=== PATIENT | male | born 1940 | race Caucasian/White ===

== ENCOUNTER → 2016-07-01 | Outpatient (REF) | payer OTHER ==
[2016-07-01 19:11] LABS: MEAN CORPUSCULAR HEMOGLOBIN 32.1 pg (27.0-33.0); MEAN CORPUSCULAR HGB CONC 32.7 g/dl (32.0-36.5); MEAN CORPUSCULAR VOLUME 98.3 fl (80.0-96.0); RED CELL DISTRIBUTION WIDTH 14.9 % (11.5-14.5); WHITE BLOOD COUNT 6.2 K/mm3 (4.0-10.0)
[2016-07-01 19:47] LABS: ALBUMIN 3.4 GM/DL (3.2-5.2); ALBUMIN/GLOBULIN RATIO 1.17 (1.00-1.93); BILIRUBIN,TOTAL 0.3 MG/DL (0.2-1.0); CALCIUM LEVEL 8.9 MG/DL (8.8-10.2); CREATININE FOR GFR 1.37 MG/DL (0.70-1.30); GLOMERULAR FILTRATION RATE 54.1 (>42); POTASSIUM SERUM 4.8 MEQ/L (3.5-5.1); TOTAL PROTEIN 6.3 GM/DL (6.4-8.2); URIC ACID 10.1 MG/DL (3.5-7.2)
== END ==
LOC: M SFHCADAM 13:19
PROVIDERS: ATTEND Physician Assistant
DX: N18.3 Chronic kidney disease, stage 3 (moderate) (principal); E11.22 Type 2 diabetes mellitus with diabetic chronic kidney disease; E79.0 Hyperuricemia without signs of inflammatory arthritis and tophaceous disease

== ENCOUNTER → 2016-07-19 | Outpatient (REF) | payer OTHER | LOC: M SFHCADAM 10:45 | PROVIDERS: ATTEND Physician Assistant | DX: R76.8 Other specified abnormal immunological findings in serum (principal); Z79.01 Long term (current) use of anticoagulants ==

== ENCOUNTER → 2016-08-02 | Outpatient (CLI) | payer OTHER ==
--- NOTE | 2016-08-02 15:10 | REP ---
Clinical: Cough. Technique: PA and lateral views. Comparison: 05/11/2014. Findings: Mediastinum and cardiac silhouette are stable. Lung fuller demonstrate chronic-appearing interstitial changes primarily involving the bilateral lung bases. No obvious acute focal consolidation, effusion, or pneumothorax. Skeletal structures demonstrate age-related degenerative changes. Small hiatal hernia cannot be excluded. Impression: Chronic stable changes. No obvious acute cardiopulmonary process. Small hiatal hernia suggested. Signed by Jimbo Paz MD 08/02/2016 03:01 P
== END ==
LOC: M ADAMS 14:35
PROVIDERS: ATTEND Family Medicine
DX: R05 Cough (principal)
CPT/HCPCS: 71020; G0463

== ENCOUNTER → 2016-09-29 | Outpatient (CLI) | payer OTHER ==
--- NOTE | 2016-09-29 16:38 | REP ---
LUMBAR SPINE, FIVE VIEWS: HISTORY: Right sciatica. The patient is status-post L2-3 to L5-S1 laminectomy. There is no acute fracture. There are old compression fractures of the L2, L4, and L5 vertebral bodies with minimal to mild height loss. There is no subluxation. The lumbar intervertebral discs are decreased in height. Vacuum phenomenon is present at the L1-2 and L5-S1 levels. These findings are consistent with disc degeneration. There is narrowing of the L1-2 through L5-S1 facet joints. There is scoliosis convex to the right. IMPRESSION: Degenerative change as described above. Signed by Jose Melo MD 09/29/2016 04:41 P
[2016-09-29 20:31] LABS: CALCIUM LEVEL 9.2 MG/DL (8.8-10.2); CREATININE FOR GFR 1.29 MG/DL (0.70-1.30)
[2016-09-29 20:34] LABS: POTASSIUM SERUM 5.2 MEQ/L (3.5-5.1)
== END ==
LOC: M ADAMS 14:16
PROVIDERS: ATTEND Family Medicine
DX: M54.31 Sciatica, right side (principal); M51.36 Other intervertebral disc degeneration, lumbar region; M51.37 Other intervertebral disc degeneration, lumbosacral region; I50.40 Unspecified combined systolic (congestive) and diastolic (congestive) heart failure

== ENCOUNTER → 2017-01-27 | Outpatient (REF) | payer OTHER ==
[2017-01-27 13:06] LABS: CALCIUM LEVEL 9.4 MG/DL (8.8-10.2); CREATININE FOR GFR 1.59 MG/DL (0.70-1.30); GLOMERULAR FILTRATION RATE 45.4 (>42); MAGNESIUM LEVEL 2.4 MG/DL (1.8-2.4)
[2017-01-27 13:07] LABS: POTASSIUM SERUM 5.2 MEQ/L (3.5-5.1)
== END ==
LOC: M LAB REF 12:13
PROVIDERS: ATTEND Internal Medicine Cardiovascular Disease
DX: I50.40 Unspecified combined systolic (congestive) and diastolic (congestive) heart failure (principal)

== ENCOUNTER → 2017-01-27 | Outpatient (REF) | payer OTHER ==
[2017-01-27 12:47] LABS: INR 2.22
== END ==
LOC: M SFHCADAM 10:37
PROVIDERS: ATTEND Physician Assistant
DX: I48.2 Chronic atrial fibrillation (principal); Z51.81 Encounter for therapeutic drug level monitoring; Z79.01 Long term (current) use of anticoagulants

== ENCOUNTER → 2017-04-25 | Outpatient (REF) | payer OTHER ==
[2017-04-25 19:56] LABS: ALBUMIN 3.7 GM/DL (3.2-5.2); ALBUMIN/GLOBULIN RATIO 1.32 (1.00-1.93); BILIRUBIN,TOTAL 0.4 MG/DL (0.2-1.0); CREATININE FOR GFR 1.9 MG/DL (0.70-1.30); TOTAL PROTEIN 6.5 GM/DL (6.4-8.2); URIC ACID 4.3 MG/DL (3.5-7.2)
[2017-04-25 19:59] LABS: MEAN CORPUSCULAR HEMOGLOBIN 32.7 pg (27.0-33.0); MEAN CORPUSCULAR VOLUME 102.2 fl (80.0-96.0); PLATELET COUNT, AUTOMATED 190 10^3/uL (150-450); RED CELL DISTRIBUTION WIDTH 16.5 % (11.5-14.5); WHITE BLOOD COUNT 7.7 10^3/uL (4.0-10.0)
[2017-04-25 20:00] LABS: POTASSIUM SERUM 5.5 MEQ/L (3.5-5.1)
[2017-04-25 20:15] LABS: INR 1.68
== END ==
LOC: M SFHCADAM 15:07
PROVIDERS: ATTEND Physician Assistant
DX: E11.9 Type 2 diabetes mellitus without complications (principal); N18.3 Chronic kidney disease, stage 3 (moderate); Z79.01 Long term (current) use of anticoagulants; Z87.39 Personal history of other diseases of the musculoskeletal system and connective tissue

== ENCOUNTER → 2017-05-17 | Outpatient (CLI) | payer OTHER ==
--- NOTE | 2017-05-18 08:29 | REP ---
RIGHT HIP: CLINICAL: Pain. TECHNIQUE: Neutral and frog lateral views. FINDINGS: Moderate to early advanced degenerative changes are appreciated. Findings include increased sclerosis to the acetabular roof with marginal spurring as well as heterogeneity and small cystic changes to the subchondral femoral head. There is near complete joint space obliteration. No acute fracture or dislocation. Surrounding soft tissues are unremarkable. IMPRESSION: Moderate to early advanced degenerative changes of the right hip. No fracture or dislocation. Signed by Jimbo Paz MD 05/19/2017 08:02 A
--- NOTE | 2017-05-18 08:32 | REP ---
PELVIC RADIOGRAPH: CLINICAL: Pelvic pain. TECHNIQUE: Single AP view of the pelvis. FINDINGS: Moderate to early advanced relatively symmetric degenerative changes to the bilateral hips noted. Findings include increased sclerosis to the acetabular roof with marginal spurring as well as subchondral heterogeneity and subtle cystic changes to the femoral heads. Near complete joint space obliteration is noted bilaterally as well (right greater than left). No acute fracture or dislocation. Visualized lumbosacral spine demonstrates scoliotic curvature, advanced multilevel degenerative changes including osteophytosis, end plate sclerosis and disc space narrowing, as well as chronic appearing asymmetric compression deformities along the right side of L5. IMPRESSION: Moderate to early advanced degenerative changes. Signed by Jimbo Paz MD 05/19/2017 08:02 A
--- NOTE | 2017-05-18 08:43 | REP ---
LUMBOSACRAL SPINE SERIES: CLINICAL: Lower back pain. TECHNIQUE: AP, lateral, bilateral oblique and coned down views of the lumbosacral spine. COMPARISON: 09/29/2016. FINDINGS: Chronic stable dextroconvex scoliosis along with advanced multilevel degenerative changes including asymmetric compression deformities at L2, L4, and L5 remain unchanged. Advanced multilevel degenerative changes also include osteophytosis, endplate sclerosis, and disc space narrowing/obliteration. Findings are essentially stable when compared to prior examination. IMPRESSION: Dextroconvex scoliosis and advanced multilevel degenerative changes including multiple chronic compression deformities. Findings stable compared to prior exam. Signed by Jimbo Paz MD 05/19/2017 08:04 A
== END ==
LOC: M ADAMS 17:21
PROVIDERS: ATTEND Physician Assistant
DX: M54.41 Lumbago with sciatica, right side (principal); M16.11 Unilateral primary osteoarthritis, right hip; M51.36 Other intervertebral disc degeneration, lumbar region; M41.86 Other forms of scoliosis, lumbar region; N18.3 Chronic kidney disease, stage 3 (moderate); D63.1 Anemia in chronic kidney disease; Z79.01 Long term (current) use of anticoagulants; Z79.4 Long term (current) use of insulin; Z79.899 Other long term (current) drug therapy; I48.2 Chronic atrial fibrillation; R76.8 Other specified abnormal immunological findings in serum; E87.5 Hyperkalemia
CPT/HCPCS: 72110; 72170; 73502; 82607; 82728; 82746; 83550; 83883; 85610; G0328; G0463

== ENCOUNTER → 2017-05-17 | Outpatient (REF) | payer OTHER ==
[2017-05-17 19:50] LABS: PERCENT SATURATION 28.9 % (19.7-50.0)
[2017-05-17 19:54] LABS: FOLATE 16.8 NG/ML
[2017-05-21 00:06] LABS: FREE KAPPA LIGHT CHAINS SERUM 33.5 mg/L (3.3-19.4); FREE LAMBDA LIGHT CHAINS SERUM 31.1 mg/L (5.7-26.3); KAPPA/LAMBDA RATIO SERUM 1.08 (0.26-1.65)
== END ==
LOC: M SFHCADAM 17:09
PROVIDERS: ATTEND Physician Assistant
DX: Z51.81 Encounter for therapeutic drug level monitoring (principal); Z79.01 Long term (current) use of anticoagulants; D63.1 Anemia in chronic kidney disease

== ENCOUNTER → 2017-05-23 | Outpatient (REF) | payer OTHER | LOC: M SFHCADAM 09:43 | PROVIDERS: ATTEND Physician Assistant | DX: N18.3 Chronic kidney disease, stage 3 (moderate) (principal); D63.1 Anemia in chronic kidney disease; E87.5 Hyperkalemia; R76.8 Other specified abnormal immunological findings in serum ==

== ENCOUNTER → 2017-07-24 | Outpatient (REF) | payer OTHER ==
[2017-07-25 14:18] LABS: FERRITIN 65 NG/ML (26-388); IRON (FE) 81 UG/DL (65-175); PERCENT SATURATION 23.5 % (19.7-50.0); TOTAL IRON BINDING CAPACITY 345 UG/DL (250-450)
== END ==
LOC: M LAB REF 13:47
DX: D50.9 Iron deficiency anemia, unspecified (principal)
CPT/HCPCS: 83550

== ENCOUNTER → 2017-08-03 | Outpatient (REF) | payer OTHER ==
[2017-08-03 21:22] LABS: BASO % 0.2 % (0.0-1.0); EOS % 0.4 % (0.0-3.0); HEMATOCRIT 33.9 % (42.0-52.0); HEMOGLOBIN 11.1 g/dl (14.0-18.0); IMMATURE GRANULOCYTE % 2.1 % (0-3.0); LYMPH # 1.1 10^3/uL (1.5-4.5); MEAN CORPUSCULAR HEMOGLOBIN 32.7 pg (27.0-33.0); MEAN CORPUSCULAR HGB CONC 32.7 g/dl (32.0-36.5); MONO # 0.7 10^3/uL (0.0-0.8); MONO % 12.3 % (0.0-5.0); NEUTROPHILS # 3.7 10^3/uL (1.8-7.7); PLATELET COUNT, AUTOMATED 146 10^3/uL (150-450); RED BLOOD COUNT 3.39 10^6/uL (4.30-6.10); RED CELL DISTRIBUTION WIDTH 15.4 % (11.5-14.5); WHITE BLOOD COUNT 5.6 10^3/uL (4.0-10.0)
[2017-08-03 21:38] LABS: ALBUMIN 3.6 GM/DL (3.2-5.2)
[2017-08-03 21:38] LABS: FERRITIN 99 NG/ML (26-388); IRON (FE) 74 UG/DL (65-175); PERCENT SATURATION 22.2 % (19.7-50.0); TOTAL IRON BINDING CAPACITY 334 UG/DL (250-450)
[2017-08-03 21:54] LABS: INR 2.45; PROTHROMBIN TIME 27.6 SECONDS (12.4-14.5)
== END ==
LOC: M LABDRWAD 21:08
DX: Z01.818 Encounter for other preprocedural examination (principal); D63.8 Anemia in other chronic diseases classified elsewhere; M25.559 Pain in unspecified hip; M16.11 Unilateral primary osteoarthritis, right hip; Z79.01 Long term (current) use of anticoagulants
CPT/HCPCS: 82040

== ENCOUNTER → 2017-09-01 | Outpatient (CLI) | payer OTHER | LOC: M RAD 11:39 | DX: M79.89 Other specified soft tissue disorders (principal) | CPT/HCPCS: 93971 ==

== ENCOUNTER → 2017-09-14 | Outpatient (REF) | payer OTHER ==
[2017-09-14 13:47] LABS: CREATININE FOR GFR 1.28 MG/DL (0.70-1.30); GLOMERULAR FILTRATION RATE 58.3 (>42)
== END ==
LOC: M LABDRWAD 12:51
DX: B18.2 Chronic viral hepatitis C (principal)
CPT/HCPCS: 82565

== ENCOUNTER → 2018-01-05 | Outpatient (REF) | payer OTHER ==
[2018-01-05 13:31] LABS: ALBUMIN 3.5 GM/DL (3.2-5.2); ALBUMIN/GLOBULIN RATIO 1.09 (1.00-1.93); ALKALINE PHOSPHATASE 105 U/L (45-117); ALT/SGPT 21 U/L (12-78); ANION GAP 7 MEQ/L (8-16); AST/SGOT 17 U/L (7-37); BILIRUBIN,TOTAL 0.5 MG/DL (0.2-1.0); BLOOD UREA NITROGEN 24 MG/DL (7-18); CALCIUM LEVEL 8.9 MG/DL (8.8-10.2); CARBON DIOXIDE LEVEL 32 MEQ/L (21-32); CHLORIDE LEVEL 101 MEQ/L (98-107); CHOLESTEROL LEVEL 158 MG/DL (<200); CHOLESTEROL RISK RATIO 4.157 (<5); CREATININE FOR GFR 1.32 MG/DL (0.70-1.30); GLOMERULAR FILTRATION RATE 56.1 (>42); GLUCOSE, FASTING 173 MG/DL (70-100); HDL CHOLESTEROL 38 MG/DL (>40); NON-HDL-C 120 MG/DL; SODIUM LEVEL 140 MEQ/L (136-145); TOTAL PROTEIN 6.7 GM/DL (6.4-8.2); TRIGLYCERIDES LEVEL 205 MG/DL (<150); URIC ACID 8.8 MG/DL (3.5-7.2)
== END ==
LOC: M SFHCADAM 10:54
DX: N18.3 Chronic kidney disease, stage 3 (moderate) (principal); R76.8 Other specified abnormal immunological findings in serum; E11.9 Type 2 diabetes mellitus without complications; E79.0 Hyperuricemia without signs of inflammatory arthritis and tophaceous disease
CPT/HCPCS: 84550

== ENCOUNTER → 2018-01-29 | Outpatient (REF) | payer OTHER ==
[2018-01-29 13:08] LABS: HEMATOCRIT 33.2 % (42.0-52.0); HEMOGLOBIN 10.8 g/dl (13.5-17.5); MEAN CORPUSCULAR HGB CONC 32.5 g/dl (32.0-36.5); MEAN CORPUSCULAR VOLUME 95.4 fl (80.0-96.0); PLATELET COUNT, AUTOMATED 138 10^3/uL (150-450); RED BLOOD COUNT 3.48 10^6/uL (4.30-6.10); WHITE BLOOD COUNT 5.7 10^3/uL (4.0-10.0)
[2018-01-29 13:12] LABS: ALBUMIN 3.3 GM/DL (3.2-5.2); ALBUMIN/GLOBULIN RATIO 1.06 (1.00-1.93); ALKALINE PHOSPHATASE 91 U/L (45-117); ALT/SGPT 23 U/L (12-78); ANION GAP 7 MEQ/L (8-16); AST/SGOT 20 U/L (7-37); BILIRUBIN,TOTAL 0.4 MG/DL (0.2-1.0); BLOOD UREA NITROGEN 32 MG/DL (7-18); CALCIUM LEVEL 8.5 MG/DL (8.8-10.2); CARBON DIOXIDE LEVEL 29 MEQ/L (21-32); CHLORIDE LEVEL 101 MEQ/L (98-107); CREATININE FOR GFR 1.39 MG/DL (0.70-1.30); FERRITIN 401 NG/ML (26-388); GLOMERULAR FILTRATION RATE 52.9 (>42); GLUCOSE, FASTING 252 MG/DL (70-100); IRON (FE) 107 UG/DL (65-175); PERCENT SATURATION 35.2 % (19.7-50.0); POTASSIUM SERUM 5.1 MEQ/L (3.5-5.1); SODIUM LEVEL 137 MEQ/L (136-145); TOTAL IRON BINDING CAPACITY 304 UG/DL (250-450); TOTAL PROTEIN 6.4 GM/DL (6.4-8.2); URIC ACID 5.5 MG/DL (3.5-7.2)
== END ==
LOC: M SFHCADAM 09:55
DX: N18.3 Chronic kidney disease, stage 3 (moderate) (principal); D64.9 Anemia, unspecified; E79.0 Hyperuricemia without signs of inflammatory arthritis and tophaceous disease
CPT/HCPCS: 83550

== ENCOUNTER → 2018-02-23 | Outpatient (REF) | payer OTHER ==
[2018-02-23 13:14] LABS: IRON (FE) 96 UG/DL (65-175)
== END ==
LOC: M SFHCADAM 12:14
DX: N18.3 Chronic kidney disease, stage 3 (moderate) (principal); D64.9 Anemia, unspecified
CPT/HCPCS: 83540

== ENCOUNTER 2018-02-27 10:45 | Outpatient (REF) | payer OTHER ==
[2018-02-28 15:52] LABS: ESTIMATED AVERAGE GLUCOSE 186 MG/DL (60-110); HEMOGLOBIN A1c 8.1 %
== END 2018-02-28 ==
LOC: M SFHCADAM 10:45
DX: E11.9 Type 2 diabetes mellitus without complications (principal); Z79.01 Long term (current) use of anticoagulants; Z53.8 Procedure and treatment not carried out for other reasons; I48.2 Chronic atrial fibrillation; I25.10 Atherosclerotic heart disease of native coronary artery without angina pectoris; N18.3 Chronic kidney disease, stage 3 (moderate)
CPT/HCPCS: 83036

== ENCOUNTER → 2018-04-20 | Outpatient (REF) | payer OTHER ==
[2018-04-20 17:39] LABS: FERRITIN 407 NG/ML (26-388); IRON (FE) 112 UG/DL (65-175); PERCENT SATURATION 37.8 % (19.7-50.0); TOTAL IRON BINDING CAPACITY 296 UG/DL (250-450)
== END ==
LOC: M LAB REF 17:01
DX: D50.9 Iron deficiency anemia, unspecified (principal)
CPT/HCPCS: 83550

== ENCOUNTER → 2018-06-26 | Outpatient (REF) | payer OTHER ==
[2018-06-26 12:59] LABS: INR 1.93; PROTHROMBIN TIME 22.4 SECONDS (12.1-14.4)
== END ==
LOC: M SFHCADAM 10:39
PROVIDERS: ATTEND Physician Assistant
DX: Z79.01 Long term (current) use of anticoagulants (principal)

== ENCOUNTER → 2018-08-17 | Outpatient (REF) | payer OTHER ==
[2018-08-17 12:40] LABS: HEMATOCRIT 33.1 % (42.0-52.0); HEMOGLOBIN 10.7 g/dl (13.5-17.5); MEAN CORPUSCULAR HEMOGLOBIN 32.5 pg (27.0-33.0); MEAN CORPUSCULAR HGB CONC 32.3 g/dl (32.0-36.5); MEAN CORPUSCULAR VOLUME 100.6 fl (80.0-96.0); PLATELET COUNT, AUTOMATED 142 10^3/uL (150-450); RED BLOOD COUNT 3.29 10^6/uL (4.30-6.10); WHITE BLOOD COUNT 6.2 10^3/uL (4.0-10.0)
[2018-08-17 12:57] LABS: CREATININE, URINE 24.4 MG/DL; MALB URINE SIEMENS 6.1 MG/L
[2018-08-17 13:09] LABS: HEMOGLOBIN A1c 9.5 %
[2018-08-17 13:48] LABS: ALBUMIN 3.4 GM/DL (3.2-5.2); BILIRUBIN,TOTAL 0.4 MG/DL (0.2-1.0); CALCIUM LEVEL 8.1 MG/DL (8.8-10.2); CREATININE FOR GFR 1.5 MG/DL (0.70-1.30); FREE T4 0.9 NG/DL (0.76-1.46); GLOMERULAR FILTRATION RATE 48.4 (>42); THYROID STIMULATING HORMONE 1.02 uIU/ML (0.358-3.740); TOTAL PROTEIN 6.6 GM/DL (6.4-8.2)
== END ==
LOC: M SFHCADAM 11:00
PROVIDERS: ATTEND Physician Assistant
DX: I50.22 Chronic systolic (congestive) heart failure (principal); E11.22 Type 2 diabetes mellitus with diabetic chronic kidney disease; I48.2 Chronic atrial fibrillation; N18.9 Chronic kidney disease, unspecified

== ENCOUNTER → 2018-11-12 | Outpatient (REF) | payer MEDICARE ==
[2018-11-12 13:38] LABS: INR 1.86; PROTHROMBIN TIME 21.8 SECONDS (12.1-14.4)
[2018-11-12 14:20] LABS: HEMOGLOBIN A1c 7.7 %
== END ==
LOC: M SFHCADAM 10:32
PROVIDERS: ATTEND Physician Assistant
DX: Z51.81 Encounter for therapeutic drug level monitoring (principal); Z79.01 Long term (current) use of anticoagulants; E11.9 Type 2 diabetes mellitus without complications

== ENCOUNTER → 2018-11-15 | Outpatient (CLI) | payer MEDICARE ==
[~2018-11-15] MED LIST: CONRAY-43 43% 50ML VIAL (Q9960) As Ordered ONE; LIDOCAINE 1% MDV 20ML VIAL As Ordered ONE; methylPREDNISolone 80MG/ML SUSP 1ML VIAL (J1040) IM ONE; methylPREDNISolone SUSP 40 MG/ML (DEPO-medrol) VIAL (J1030) As Ordered ONE
--- NOTE | 2018-11-16 09:04 | REP ---
Reason For Exam/Comment: Left hip pain, rule Procedure: left hip arthrocentesis The procedure was performed by LISHA Pimentel, under the direct supervision of Dr. Lee. The benefits and risks including but not limited to pain, infection, bleeding and anaphylaxis were explained to the patient and informed consent was obtained both verbally and written. Directly prior to the start of the procedure, a formal timeout was completed in the procedure room. The left femoral neck joint was localized using fluoroscopic guidance. The skin was prepped and draped in the usual sterile fashion. 5 mL of 1% lidocaine was used as a local anesthetic. Using fluoroscopic guidance a 22-gauge spinal needle was inserted and advanced to the left femoral neck joint space. 1 mL of Conray 43 was injected to verify needle placement. A 6 mL solution containing a 5 mL 1% lidocaine 10 mg/ml and 1 ml of Depo-Medrol 80 mg/ml was injected into the joint. The needle was removed and hemostasis was achieved. The patient tolerated the procedure well and there were no immediate complications. 0.6 minutes of fluoroscopy time was utilized for this procedure. Reviewed by LISHA Mendoza 11/15/2018 11:56 A Electronically Signed by Viet Lee MD 11/16/2018 08:55 A
== END ==
LOC: M RADPRO 10:38
PROVIDERS: ATTEND Orthopaedic Surgery
DX: M25.552 Pain in left hip (principal); M16.12 Unilateral primary osteoarthritis, left hip
CPT/HCPCS: 20610; 77002; J1030; Q9960

== ENCOUNTER 2018-11-17 19:07 | Emergency (ER) | payer MEDICARE ==
[~2018-11-17] VITALS: Ht 177.8 cm; Wt 105.9 kg
--- NOTE | 2018-11-17 20:14 | REPVR ---
EXAM: CT Cervical Spine Without Contrast EXAM DATE/TIME: 11/17/2018 7:13 PM CLINICAL HISTORY: 77 years old, male; Injury or trauma; Fall; Initial encounter; Blunt trauma; Additional info: Fall on coumadin TECHNIQUE: Imaging protocol: Axial computed tomography images of the cervical spine without contrast. Coronal and sagittal reformatted images were created and reviewed. Radiation optimization: All CT scans at this facility use at least one of these dose optimization techniques: automated exposure control; mA and/or kV adjustment per patient size (includes targeted exams where dose is matched to clinical indication); or iterative reconstruction. COMPARISON: DX SPINE LS COMPLETE 05/17/2017 5:23 PM FINDINGS: Vertebrae: No acute fracture. Normal alignment. C2-C3: Bilateral degenerative changes of apophyseal joints, greatest on the left no spinal stenosis. There is mild left neural foraminal stenosis. No C3-C4: Mild anterior listhesis with degenerative changes, primarily in the left apophyseal joint with no spinal stenosis. There is moderate left neural foraminal stenosis. C4-C5: Slight interspace narrowing with mild anterior listhesis and degenerative changes of apophyseal joints bilaterally. There is moderate right and moderately severe left neural foraminal stenosis. C5-C6: Prominent interspace narrowing with near ankylosis and minimal posterior osteophytes. There are bilateral degenerative changes with moderate right and borderline left neural foraminal stenosis. C6-C7: Minimal posterior osteophytes and mild bilateral degenerative changes and no significant spinal or foraminal stenosis. C7-T1: Mild interspace narrowing with degenerative changes of apophyseal joints and mild right neural foraminal stenosis. Soft tissues: Unremarkable. Thyroid: Inhomogeneous thyroid with some prominence of the lower pole of the left suggesting a nodule which may measure 3.3 x 1.6 x 2.2 cm. Lungs: Lung apices are normal. IMPRESSION: 1. Multilevel degenerative changes with no significant spinal stenosis and varying degrees of multilevel neural foraminal stenosis. 2. No acute fracture or subluxation. 3. Question of nodule in the lower pole of the left thyroid 3.3 x 1.6 x 2.2 cm. Ultrasound may be of benefit for further evaluation. COMMENT: Consistent with the [employer]'s Incidental Findings Committee Report (J Am Fina Radiol 2015): Thyroid nodules greater than or equal to 1 cm in patients under 35 years old, or greater than or equal to 1.5 cm in patients over 35 years old, should undergo ultrasound. Patients with limited life expectancy and/or comorbidities do not require follow up imaging or biopsy for nodules of any size. Electronically signed by: Vinod Contreras On 11/17/2018 20:14:14 PM
--- NOTE | 2018-11-17 20:17 | REPVR ---
EXAM: CT Head Without Contrast EXAM DATE/TIME: 11/17/2018 7:13 PM CLINICAL HISTORY: 77 years old, male; Injury or trauma; Fall; Initial encounter; Blunt trauma (contusions or hematomas); Additional info: Fall on coumadin TECHNIQUE: Imaging protocol: Axial computed tomography images of the head without contrast. Radiation optimization: All CT scans at this facility use at least one of these dose optimization techniques: automated exposure control; mA and/or kV adjustment per patient size (includes targeted exams where dose is matched to clinical indication); or iterative reconstruction. COMPARISON: No relevant prior studies available. FINDINGS: Brain: There is slight prominence of the peripheral sulci. There is mild patchy low attenuation of deep white matter. Slight prominence of perivascular spaces at the base of the brain. Ventricles: Normal. No ventriculomegaly. Bones/joints: Unremarkable. No acute fracture. Sinuses: Visualized sinuses are unremarkable. No fluid levels. Mastoid air cells: Visualized mastoid air cells are well aerated. No mastoid effusion. Auditory system: Debris in the external auditory canals. Soft tissues: Right forehead and frontal scalp soft tissue swelling and hematoma extending into the right periorbital region, greatest laterally. IMPRESSION: 1. Large right forehead and frontal scalp soft tissue swelling and hematoma with extension around the right periorbital region. 2. Mild chronic ischemic white matter change and minimal atrophy. 3. Otherwise negative noncontrast head CT. Electronically signed by: Vinod Contreras On 11/17/2018 20:17:17 PM
[2018-11-17 20:22] LABS: BASO % 0.2 % (0.0-1.0); EOS % 0.1 % (0.0-3.0); HEMATOCRIT 32.3 % (42.0-52.0); HEMOGLOBIN 10.5 g/dl (13.5-17.5); LYMPH # 1.5 10^3/uL (1.5-4.5); LYMPH % 11.7 % (24.0-44.0); MEAN CORPUSCULAR HEMOGLOBIN 32.8 pg (27.0-33.0); MEAN CORPUSCULAR HGB CONC 32.5 g/dl (32.0-36.5); MEAN CORPUSCULAR VOLUME 100.9 fl (80.0-96.0); MONO # 1.6 10^3/uL (0.0-0.8); MONO % 12.9 % (0.0-5.0); NEUTROPHILS # 9.1 10^3/uL (1.8-7.7); NEUTROPHILS % 73.1 % (36.0-66.0); PLATELET COUNT, AUTOMATED 157 10^3/uL (150-450); WHITE BLOOD COUNT 12.4 10^3/uL (4.0-10.0)
[2018-11-17 20:31] VITALS: BP 131/81
[2018-11-17 20:44] LABS: INR 2.05; PARTIAL THROMBOPLASTIN TIME 36.6 SECONDS (25.4-37.6); PROTHROMBIN TIME 23.5 SECONDS (12.1-14.4)
[2018-11-17 20:47] LABS: CREATININE FOR GFR 1.56 MG/DL (0.70-1.30); GLOMERULAR FILTRATION RATE 46.3 (>42); POTASSIUM SERUM 4.6 MEQ/L (3.5-5.1)
--- NOTE | 2018-11-20 12:43 | ED PDOC ---
Post-Departure Follow-Up hong adams faxed formal report of ct s spine for fu Maycol Lovelace MD Nov 20, 2018 12:43
== END 2018-11-17 20:42 | disposition home or self-care (01) ==
LOC: M ED 19:07
DX: S00.83XA Contusion of other part of head, initial encounter (principal); W01.10XD Fall on same level from slipping, tripping and stumbling with subsequent striking against unspecified object, subsequent encounter; Y92.098 Other place in other non-institutional residence as the place of occurrence of the external cause; E11.9 Type 2 diabetes mellitus without complications; I10 Essential (primary) hypertension; I48.91 Unspecified atrial fibrillation; M19.90 Unspecified osteoarthritis, unspecified site; M10.9 Gout, unspecified; J44.9 Chronic obstructive pulmonary disease, unspecified; Z79.899 Other long term (current) drug therapy; Z79.01 Long term (current) use of anticoagulants

== ENCOUNTER → 2018-12-20 | Outpatient (CLI) | payer MEDICARE ==
--- NOTE | 2018-12-21 00:44 | REP ---
Clinical: Thyroid nodule. Technique: Real time godwin scale ultrasound examination using linear and curved array transducers. Findings: The thyroid gland is diffusely heterogeneous with innumerable bilateral nodules and both simple and complex cysts. The right thyroid lobe measures 4.9 x 1.9 x 2.1 cm, and the largest complex cyst with mural nodular components measures 1.7 x 1.1 x 1.3 cm. The left thyroid lobe measures 5.2 x 3.0 x 2.4 cm, and the largest complex cyst with mural nodular components measures 2.7 x 2.0 x 1.6 cm and 1.3 x 1.0 x 1.4 cm. Impression: Diffusely heterogeneous multinodular thyroid gland.
== END ==
LOC: M WHC 08:41
PROVIDERS: ATTEND Physician Assistant
DX: E04.1 Nontoxic single thyroid nodule (principal)

== ENCOUNTER → 2019-01-10 | Outpatient (CLI) | payer MEDICARE ==
--- NOTE | 2019-01-10 14:04 | REP ---
Clinical: Chronic medical renal disease stage III. Technique: Real time godwin scale and color evaluation using curved array transducer. Findings: The kidneys demonstrate increased parenchymal echogenicity consistent with chronic medical renal disease and no evidence for hydronephrosis, nephrolithiasis or mass lesion. Bladder is grossly unremarkable but incompletely distended. Right kidney measures 17.7 x 7.6 x 9.4 cm including 8.2 x 6.6 x 8.0 cm upper pole cyst, 6.5 x 4.2 x 3.8 cm mid/upper pole cyst, 5.6 x 6.5 x 4.8 cm mid pole cyst. Left kidney measures 12.1 x 6.5 x 5.2 cm and includes 2.0 x 2.0 x 1.6 cm upper pole cyst. Impression: Chronic medical renal disease and bilateral cysts (right greater than left). Electronically Signed by Jimbo Paz MD 01/10/2019 01:56 P
== END ==
LOC: M RAD 12:59
PROVIDERS: ATTEND Internal Medicine Nephrology
DX: N18.3 Chronic kidney disease, stage 3 (moderate) (principal); N28.1 Cyst of kidney, acquired

== ENCOUNTER → 2019-04-01 | Outpatient (REF) | payer MEDICARE ==
[2019-04-01 16:39] LABS: HEMOGLOBIN 9.6 g/dl (13.5-17.5); MEAN CORPUSCULAR HEMOGLOBIN 32.2 pg (27.0-33.0); MEAN CORPUSCULAR VOLUME 100.7 fl (80.0-96.0); PLATELET COUNT, AUTOMATED 132 10^3/uL (150-450); RED BLOOD COUNT 2.98 10^6/uL (4.30-6.10); WHITE BLOOD COUNT 5.5 10^3/uL (4.0-10.0)
[2019-04-01 16:42] LABS: ALBUMIN 3.3 GM/DL (3.2-5.2); BILIRUBIN,TOTAL 0.4 MG/DL (0.2-1.0); CALCIUM LEVEL 8.6 MG/DL (8.8-10.2); CREATININE FOR GFR 1.38 MG/DL (0.70-1.30); GLOMERULAR FILTRATION RATE 53.2 (>42); POTASSIUM SERUM 4.7 MEQ/L (3.5-5.1); TOTAL PROTEIN 6.2 GM/DL (6.4-8.2)
[2019-04-01 16:51] LABS: INR 2.78; PROTHROMBIN TIME 29.2 SECONDS (11.8-14.0)
[2019-04-01 17:05] LABS: HEMOGLOBIN A1c 7.6 %
== END ==
LOC: M SFHCADAM 11:44
PROVIDERS: ATTEND Physician Assistant
DX: N18.3 Chronic kidney disease, stage 3 (moderate) (principal); Z79.01 Long term (current) use of anticoagulants; E11.22 Type 2 diabetes mellitus with diabetic chronic kidney disease; I50.22 Chronic systolic (congestive) heart failure

== ENCOUNTER → 2019-07-04 | Outpatient (REF) | payer MEDICARE ==
[2019-07-04 13:15] LABS: BASO % 0.2 % (0.0-1.0); EOS % 0.2 % (0.0-3.0); HEMATOCRIT 30.7 % (42.0-52.0); HEMOGLOBIN 9.8 g/dl (13.5-17.5); LYMPH % 16.5 % (24.0-44.0); MEAN CORPUSCULAR HEMOGLOBIN 32.1 pg (27.0-33.0); MEAN CORPUSCULAR HGB CONC 31.9 g/dl (32.0-36.5); MEAN CORPUSCULAR VOLUME 100.7 fl (80.0-96.0); MONO # 0.8 10^3/uL (0.0-0.8); NEUTROPHILS % 67.6 % (36.0-66.0); PLATELET COUNT, AUTOMATED 135 10^3/uL (150-450); RED BLOOD COUNT 3.05 10^6/uL (4.30-6.10); WHITE BLOOD COUNT 5.9 10^3/uL (4.0-10.0)
[2019-07-04 13:34] LABS: HEMOGLOBIN A1c 7.5 %
[2019-07-04 13:44] LABS: ALBUMIN 3.4 GM/DL (3.2-5.2); PERCENT SATURATION 28.9 % (19.7-50.0)
== END ==
LOC: M LABDRWAD 12:38
PROVIDERS: ATTEND Orthopaedic Surgery
DX: Z01.818 Encounter for other preprocedural examination (principal); M16.12 Unilateral primary osteoarthritis, left hip; M25.559 Pain in unspecified hip; Z86.39 Personal history of other endocrine, nutritional and metabolic disease

== ENCOUNTER → 2019-07-04 | Outpatient (REF) | payer MEDICARE ==
[2019-07-04 13:16] LABS: HEMATOCRIT 31.6 % (42.0-52.0); HEMOGLOBIN 9.9 g/dl (13.5-17.5); MEAN CORPUSCULAR HGB CONC 31.3 g/dl (32.0-36.5); MEAN CORPUSCULAR VOLUME 102.3 fl (80.0-96.0); PLATELET COUNT, AUTOMATED 125 10^3/uL (150-450); RED BLOOD COUNT 3.09 10^6/uL (4.30-6.10); WHITE BLOOD COUNT 5.9 10^3/uL (4.0-10.0)
[2019-07-04 13:22] LABS: FERRITIN 468 NG/ML (26-388); IRON (FE) 84 UG/DL (65-175); PERCENT SATURATION 29.4 % (19.7-50.0); TOTAL IRON BINDING CAPACITY 286 UG/DL (250-450); TOTAL PROTEIN 6.3 GM/DL (6.4-8.2)
[2019-07-04 13:25] LABS: INR 2.33; PROTHROMBIN TIME 25.3 SECONDS (11.8-14.0)
[2019-07-04 13:31] LABS: FOLATE 16.6 NG/ML; VITAMIN B12 LEVEL 494 PG/ML
[2019-07-06 09:11] LABS: FREE KAPPA LIGHT CHAINS SERUM 45.7 mg/L (3.3-19.4); FREE KAPPA LIGHT CHAINS URINE 28.43 mg/L (0.63-113.79); FREE LAMBDA LIGHT CHAINS SERUM 36.8 mg/L (5.7-26.3); FREE LAMBDA LIGHT CHAINS URINE 2.05 mg/L (0.47-11.77); KAPPA/LAMBDA RATIO SERUM 1.24 (0.26-1.65); KAPPA/LAMBDA RATIO URINE 13.87 (1.03-31.76)
[2019-07-09 11:39] LABS: ALBUMIN 3.64 GM/DL (3.29-5.55); ALBUMIN % 57.8 % (55.8-66.1); ALPHA-1-GLOBULIN % 5.3 % (2.9-4.9); ALPHA-1-GLOBULINS 0.33 GM/DL (0.17-0.41); ALPHA-2-GLOBULINS 0.67 GM/DL (0.42-0.99); ALPHA-2-GLOBULINS % 10.7 % (7.1-11.8); BETA-1-GLOBULINS 0.38 GM/DL (0.28-0.60); BETA-2-GLOBULINS 0.39 GM/DL (0.19-0.55); BETA-2-GLOBULINS % 6.2 % (3.2-6.5); GAMMA GLOBULINS 0.88 GM/DL (0.65-1.58)
== END ==
LOC: M SFHCADAM 10:07
PROVIDERS: ATTEND Family Medicine
DX: Z01.818 Encounter for other preprocedural examination (principal); D64.9 Anemia, unspecified; N18.3 Chronic kidney disease, stage 3 (moderate); I48.20 Chronic atrial fibrillation, unspecified; M16.12 Unilateral primary osteoarthritis, left hip; M25.559 Pain in unspecified hip; Z86.39 Personal history of other endocrine, nutritional and metabolic disease

== ENCOUNTER → 2019-09-02 | Outpatient (REF) | payer MEDICARE ==
[2019-09-02 16:14] LABS: INR 4.46; PROTHROMBIN TIME 42.7 SECONDS (11.8-14.0)
== END ==
LOC: M SFHCADAM 15:50
PROVIDERS: ATTEND Physician Assistant Medical
DX: I48.20 Chronic atrial fibrillation, unspecified (principal)

== ENCOUNTER → 2019-09-09 | Outpatient (REF) | payer MEDICARE ==
[2019-09-09 13:19] LABS: HEMATOCRIT 29.2 % (42.0-52.0); HEMOGLOBIN 9.2 g/dl (13.5-17.5); MEAN CORPUSCULAR HGB CONC 31.5 g/dl (32.0-36.5); MEAN CORPUSCULAR VOLUME 98.3 fl (80.0-96.0); PLATELET COUNT, AUTOMATED 109 10^3/uL (150-450); RED BLOOD COUNT 2.97 10^6/uL (4.30-6.10); WHITE BLOOD COUNT 25.3 10^3/uL (4.0-10.0)
[2019-09-09 13:29] LABS: INR 2.96; PROTHROMBIN TIME 30.7 SECONDS (11.8-14.0)
[2019-09-09 13:40] LABS: HEMOGLOBIN A1c 6.7 %
[2019-09-09 13:46] LABS: ALBUMIN 2.8 GM/DL (3.2-5.2); ALT/SGPT 27 U/L (12-78); BILIRUBIN,TOTAL 0.3 MG/DL (0.2-1.0); BLOOD UREA NITROGEN 21 MG/DL (7-18); CALCIUM LEVEL 8.2 MG/DL (8.8-10.2); CARBON DIOXIDE LEVEL 31 MEQ/L (21-32); CHLORIDE LEVEL 105 MEQ/L (98-107); GLOMERULAR FILTRATION RATE > 60.0 (>42); GLUCOSE, FASTING 189 MG/DL (70-100); POTASSIUM SERUM 3.9 MEQ/L (3.5-5.1); SODIUM LEVEL 141 MEQ/L (136-145); TOTAL PROTEIN 5.7 GM/DL (6.4-8.2)
== END ==
LOC: M LAB REF 12:51
PROVIDERS: ATTEND Physician Assistant
DX: N18.3 Chronic kidney disease, stage 3 (moderate) (principal); D63.1 Anemia in chronic kidney disease; E11.22 Type 2 diabetes mellitus with diabetic chronic kidney disease; I48.20 Chronic atrial fibrillation, unspecified

== ENCOUNTER → 2019-09-11 | Outpatient (REF) | payer MEDICARE ==
[2019-09-11 13:55] LABS: HEMATOCRIT 30.5 % (42.0-52.0); HEMOGLOBIN 9.5 g/dl (13.5-17.5); MEAN CORPUSCULAR HEMOGLOBIN 30.8 pg (27.0-33.0); MEAN CORPUSCULAR HGB CONC 31.1 g/dl (32.0-36.5); PLATELET COUNT, AUTOMATED 105 10^3/uL (150-450); RED BLOOD COUNT 3.08 10^6/uL (4.30-6.10)
[2019-09-11 14:04] LABS: ALBUMIN 3.3 GM/DL (3.2-5.2); BILIRUBIN,TOTAL 0.5 MG/DL (0.2-1.0); CALCIUM LEVEL 8.5 MG/DL (8.8-10.2); CREATININE FOR GFR 1.29 MG/DL (0.70-1.30); GLOMERULAR FILTRATION RATE 57.5 (>42); POTASSIUM SERUM 3.8 MEQ/L (3.5-5.1); TOTAL PROTEIN 6.4 GM/DL (6.4-8.2)
[2019-09-11 14:28] LABS: WHITE BLOOD COUNT 47.3 10^3/uL (4.0-10.0)
[2019-09-11 14:40] LABS: ATYPICAL LYMPH 3 % (0-5); BLAST CELLS 4 % (0-0); LYMPHOCYTES 12 % (16-44); METAMYELOCYTES 1 % (0-0); MONOCYTES 6 % (0-5); MYELOCYTES 13 % (0-0); NEUTROPHILS 26 % (28-66); PROMYELOCYTES 31 % (0-0)
[2019-09-11 14:41] LABS: OVALOCYTES 1+
[2019-09-11 14:43] LABS: MICROCYTOSIS 1+
[2019-09-11 14:44] LABS: GIANT PLATELETS 1+; PLATELET ESTIMATE DECREASED (NORMAL)
[2019-09-11 14:47] LABS: APPEARANCE, URINE HAZY (CLEAR); BACTERIA, URINE AUTO 1+ (NEGATIVE); BILIRUBIN, URINE AUTO NEGATIVE (NEGATIVE); BLOOD, URINE BLOOD 1+ (NEGATIVE); COLOR, URINE YELLOW (YELLOW); GLUCOSE, URINE (UA) AUTO NEGATIVE (NEGATIVE); KETONE, URINE AUTO NEGATIVE (NEGATIVE); LEUKOCYTE ESTERASE, URINE AUTO NEGATIVE (NEGATIVE); NITRITE, URINE AUTO NEGATIVE (NEGATIVE); PROTEIN, URINE AUTO NEGATIVE (NEGATIVE); RBC, URINE AUTO 2 /HPF (0-3); SPECIFIC GRAVITY URINE AUTO 1.015 (1.002-1.035); SQUAMOUS EPITHELIAL CELL UR AU 2 /HPF (0-6); UROBILINOGEN, URINE AUTO 0.2 mg/dL (0.0-2.0); WBC, URINE AUTO 3 /HPF (0-3)
== END ==
LOC: M SFHCADAM 11:55
PROVIDERS: ATTEND Family Medicine
DX: D72.829 Elevated white blood cell count, unspecified (principal); L03.116 Cellulitis of left lower limb; Z79.899 Other long term (current) drug therapy

== ENCOUNTER → 2019-09-11 | Outpatient (CLI) | payer MEDICARE ==
--- NOTE | 2019-09-11 14:08 | REP ---
CHEST, TWO VIEWS: Two view of the chest are performed and compared to prior study of 08/02/2016. There is mild bibasilar fibrotic change which appears stable. No new infiltrate is seen. The heart is not enlarged. The mediastinal silhouette is unchanged. The visualized osseous structures are intact. IMPRESSION: Stable chronic findings without evidence of acute infiltrate. Electronically Signed by Viet Lee MD 09/11/2019 03:08 P
== END ==
LOC: M ADAMS 12:06
PROVIDERS: ATTEND Family Medicine
DX: D72.829 Elevated white blood cell count, unspecified (principal); L03.116 Cellulitis of left lower limb; Z79.899 Other long term (current) drug therapy

== ENCOUNTER → 2019-09-12 | Outpatient (REF) | payer MEDICARE | LOC: M SFHCCLAY 10:08 | PROVIDERS: ATTEND Family Medicine | DX: C92.00 Acute myeloblastic leukemia, not having achieved remission (principal) ==